=== PATIENT | female | born 1945 | race Caucasian/White ===

== ENCOUNTER 2017-09-08 01:56 | Inpatient (IN) | payer MEDICARE ==
[~2017-09-08] VITALS: Ht 165.1 cm; Wt 104.0 kg
[2017-09-08] MEDS ORDERED: ALBUTEROL SULFATE 2.5 MG/3 ML ONE (03:29)
[2017-09-08] MEDS ORDERED: ALBUTEROL SULFATE 2.5 MG/3 ML NPPB ONE (03:30)
[2017-09-08 03:35] LABS: BASOPHILS # (AUTO) 0.05 x10^3/uL (0-0.1); BASOPHILS % (AUTO) 0 % (0-1); EOSINOPHILS # (AUTO) 0.08 x10^3/uL (0-0.4); EOSINOPHILS % (AUTO) 1 % (1-7); LYMPHOCYTES # (AUTO) 1.72 x10^3/uL (1-3.4); LYMPHOCYTES % (AUTO) 13 % (22-44); MD NO; MEAN CORPUSCULAR HEMOGLOBIN 28.8 pg (27.0-34.8); MEAN CORPUSCULAR HGB CONC 33.1 g/dL (32.4-35.8); MEAN PLATELET VOLUME 8.7 fL (7.4-10.4); MONOCYTES % (AUTO) 11 % (2-9); NEUTROPHILS # (AUTO) 9.83 x10^3/uL (1.8-6.8); NEUTROPHILS % (AUTO) 75 % (42-75); PLATELET COUNT 362 x10^3/uL (130-400); RED BLOOD COUNT 4.46 x10^6/uL (3.82-5.3); RED CELL DISTRIBUTION WIDTH 15.1 % (9.6-15.2)
[2017-09-08 03:46] LABS: ALBUMIN 3.2 g/dL (3.4-5.0); ANION GAP 8 mmol/L (5-15); CALCIUM 8.9 mg/dL (8.5-10.1); CHLORIDE 102 mmol/L (98-107); CREATININE 1.27 mg/dL (0.55-1.02)
[2017-09-08 04:00] LABS: TROPONIN I 0.481 ng/mL (0.000-0.045)
[2017-09-08] MEDS ORDERED: ASPIRIN 81 MG TABLET CHEW PO ONE (04:00)
[2017-09-08] MEDS ORDERED: ASPIRIN 81 MG TABLET CHEW ONE (04:04)
[2017-09-08] MEDS ORDERED: HEPARIN 25,000 UNITS/500ML PMX 500 ML ONE (04:04)
[2017-09-08] MEDS ORDERED: ONDANSETRON ODT 4 MG ONE (04:19)
[2017-09-08] MEDS ORDERED: HEPARIN 5,000 UNITS/ML, 1ML IV ONE (04:30)
[2017-09-08] MEDS ORDERED: HEPARIN 25,000 UNITS/500ML PMX 500 ML IV PRN (04:30)
[2017-09-08] MEDS ORDERED: ONDANSETRON ODT 4 MG PO ONE (04:30)
[2017-09-08] MEDS ORDERED: OMNIPAQUE 350 MG/ML, 100ML BOTTLE ONE (04:33)
[2017-09-08] MEDS ORDERED: HEPARIN 5,000 UNITS/ML, 1ML ONE (04:45)
[2017-09-08] MEDS ORDERED: POTA10TA31 PO (05:19)
[2017-09-08] MEDS ORDERED: INSU100V8 SQ (05:19)
[2017-09-08] MEDS ORDERED: ATOR40TA78 PO (05:19)
[2017-09-08] MEDS ORDERED: AMLO10TA2 PO (05:19)
[2017-09-08] MEDS ORDERED: FURO40TA6 PO (05:19)
[2017-09-08] MEDS ORDERED: FURO-92 PO (05:19)
[2017-09-08] MEDS ORDERED: LIRA0.6P SC (05:19)
[2017-09-08] MEDS ORDERED: METF500T5 PO (05:19)
[2017-09-08] MEDS ORDERED: QUIN40TA15 PO (05:19)
[2017-09-08] MEDS ORDERED: LEVO125T5 PO (05:19)
[2017-09-08] MEDS ORDERED: DORZ10DR7 OP (05:27)
[2017-09-08] MEDS ORDERED: FLUT16SP NAS (05:27)
[2017-09-08] MEDS ORDERED: BIMA2.5D OP (05:27)
[2017-09-08] MEDS ORDERED: CETI10CA PO (05:32)
[2017-09-08] MEDS ORDERED: ASPI-496 PO (05:32)
[2017-09-08] MEDS ORDERED: OMEP40CA6 PO (05:32)
[2017-09-08] MEDS ORDERED: MELO15TA24 PO (05:32)
[2017-09-08 05:39] LABS: INTERNATIONAL NORMALIZED RATIO 1.07 (0.93-1.1)
[2017-09-08] MEDS ORDERED: SODIUM CHLORIDE 0.9% 1,000 ML IV SCH (06:20)
[2017-09-08] MEDS ORDERED: FLUTICASONE NASAL SPRAY 16GM NAS PRN (06:30)
[2017-09-08] MEDS ORDERED: NITROGLYCERIN 0.4 MG BOTTLE (25 TABS) SL PRN (06:30)
[2017-09-08] MEDS ORDERED: hydrALAzine 20 MG/ML, 1ML IVPush PRN (06:30)
[2017-09-08] MEDS ORDERED: ONDANSETRON 2MG/ML, 2ML IVPush PRN (06:30)
[2017-09-08] MEDS ORDERED: ACETAMINOPHEN 325 MG TABLET PO PRN (06:30)
[2017-09-08 07:53] VITALS: BP 165/81
[2017-09-08] MEDS ORDERED: BIMATOPROST MC SCH ×2 (08:00→16:00)
[2017-09-08] MEDS ORDERED: AMLODIPINE 5 MG TABLET PO SCH (09:00)
[2017-09-08] MEDS ORDERED: OMEPRAZOLE 20 MG CAPSULE.DR PO SCH (09:00)
[2017-09-08] MEDS ORDERED: QUINAPRIL 20MG TABLET PO SCH (09:00)
[2017-09-08] MEDS ORDERED: LEVOTHYROXINE 125 MCG TABLET PO SCH (09:00)
[2017-09-08] MEDS ORDERED: ASPIRIN 81 MG TABLET EC PO SCH (09:00)
[2017-09-08] MEDS ORDERED: INSULIN GLARGINE 100 UNITS/ML, PEN SQ-INSULIN SCH (09:00)
[2017-09-08] MEDS ORDERED: ATORVASTATIN 40 MG TABLET PO SCH (09:00)
[2017-09-08] MEDS ORDERED: CETIRIZINE 10 MG TABLET PO SCH (09:00)
[2017-09-08] MEDS ORDERED: Dorzolamide Hcl/Timolol Maleat (Dorzolamide-Timolol Eye Drops OP SCH (09:00)
[2017-09-08] MEDS ORDERED: METOPROLOL SUCCINATE 25 MG TAB.ER.24H PO SCH (09:30)
[2017-09-08 10:42] LABS: TROPONIN I 0.506 ng/mL (0.000-0.045)
[2017-09-08 11:24] VITALS: BP 160/81
[2017-09-08 12:02] LABS: MICROSCOPIC NOT IND
[2017-09-08 12:12] LABS: CULTURE INDICATED? NO
[2017-09-08] MEDS ORDERED: (Bimatoprost (Lumigan) 1 DROP) OP SCH (21:00)
[2017-09-08] MEDS ORDERED: LIRAGLUTIDE SC SCH (21:00)
== END 2017-09-08 11:56 | disposition left against medical advice (07) | DRG 280 ==
LOC: ED 04:10 → EDIP 05:59 → 5SO 07:51
PROVIDERS: ADMIT Hospitalist; ATTEND Hospitalist
DX: I21.4 Non-ST elevation (NSTEMI) myocardial infarction (principal); J96.01 Acute respiratory failure with hypoxia; I50.32 Chronic diastolic (congestive) heart failure; J45.31 Mild persistent asthma with (acute) exacerbation; E03.9 Hypothyroidism, unspecified; E11.9 Type 2 diabetes mellitus without complications; E66.01 Morbid (severe) obesity due to excess calories; E78.5 Hyperlipidemia, unspecified; I11.0 Hypertensive heart disease with heart failure; J40 Bronchitis, not specified as acute or chronic; K21.9 Gastro-esophageal reflux disease without esophagitis; Z79.4 Long term (current) use of insulin; Z82.49 Family history of ischemic heart disease and other diseases of the circulatory system; Z96.651 Presence of right artificial knee joint; Z83.3 Family history of diabetes mellitus; Z68.38 Body mass index [BMI] 38.0-38.9, adult; Z53.21 Procedure and treatment not carried out due to patient leaving prior to being seen by health care provider
CPT/HCPCS: 36415; 71045; 71275; 80048; 81003; 82040; 82962; 83880; 84484; 85025; 85379; 85520; 85610; 85730; 93005; 94640; 96365; 96366; 96375; J1644; J7613; Q0162; Q9967; J1815; J7512